=== PATIENT | male | born 1955 | race Caucasian/White ===

== ENCOUNTER 2022-11-25 07:28 | Observation (INO) | payer MEDICARE ==
[2022-11-25] MEDS ORDERED: Midazolam HCl 2 mg/2 ml Vial ONE (07:57)
[2022-11-25] MEDS ORDERED: fentaNYL 50 mcg/mL 1 mL Vial ONE (07:57)
[2022-11-25] MEDS ORDERED: Ropivacaine 0.5% HCl/PF (150 MG/30 ML VIAL) ONE (08:08)
[2022-11-25] MEDS ORDERED: Sodium Chloride 0.9% 100 ML ONE ×2 (08:15→09:47)
[2022-11-25] MEDS ORDERED: Tranexamic Acid 1,000 MG/10 ML VIAL ONE (08:15)
[2022-11-25] MEDS ORDERED: VANCOMYCIN 2 GRAM/500 ML BAG 2 GM in Premix Bag 1 BAG IVPB SCH (08:30)
[2022-11-25] MEDS ORDERED: fentaNYL PF 100 MCG/2 ML SYRINGE ONE (09:36)
[2022-11-25] MEDS ORDERED: HYDROmorphone 0.5 MG/0.5 ML SYRINGE ONE (09:37)
[2022-11-25] MEDS ORDERED: CEFAZOLIN 2 GM VIAL ONE (09:47)
[2022-11-25] MEDS ORDERED: fentaNYL 50 mcg/mL 1 mL Vial SLOW IVP PRN (09:50)
[2022-11-25] MEDS ORDERED: Lidocaine 1% PF 5 ML VIAL ONE (09:55)
[2022-11-25] MEDS ORDERED: PROPOFOL 200 MG/20 ML VIAL ONE (09:55)
[2022-11-25] MEDS ORDERED: Rocuronium Bromide 10 MG/ML (10ML VIAL) ONE (09:55)
[2022-11-25] MEDS ORDERED: Ondansetron PF 4 MG/2 ML Vial ONE (09:55)
[2022-11-25] MEDS ORDERED: Dexamethasone 20 MG/5 ML VIAL ONE (09:55)
[2022-11-25] MEDS ORDERED: Ondansetron PF 4 MG/2 ML Vial IVP PRN ×2 (10:00→12:28)
[2022-11-25] MEDS ORDERED: traMADol HCl 50 MG TAB PO PRN ×2 (10:00)
[2022-11-25] MEDS ORDERED: Ropivacaine 0.2% 550 ML 550 ML NERVE BLCK SCH (10:00)
[2022-11-25] MEDS ORDERED: Promethazine HCl 25 MG/ML VIAL IM PRN ×2 (10:00→12:51)
[2022-11-25] MEDS ORDERED: Zolpidem Tartrate 5 MG TAB PO PRN ×2 (10:00→12:28)
[2022-11-25] MEDS ORDERED: HYDROcodone/Acetaminophen 10/325 mg Tablet PO PRN ×2 (10:00)
[2022-11-25] MEDS ORDERED: Phenylephrine 10 MG/ML VIAL ONE (10:20)
[2022-11-25] MEDS ORDERED: SUGAMMADEX SODIUM 200 MG/2 ML VIAL ONE (11:46)
[2022-11-25] MEDS: Ketorolac Tromethamine 30 MG/ML VIAL IVP SCH ×2 (12:00→18:31)
[2022-11-25] MEDS ORDERED: Bisacodyl 10 MG SUPP PR PRN (12:28)
[2022-11-25] MEDS ORDERED: Methocarbamol 500 MG TAB PO PRN (12:28)
[2022-11-25] MEDS ORDERED: Acetaminophen 325 MG TAB PO PRN (12:28)
[2022-11-25] MEDS ORDERED: Ondansetron ODT 4 MG TAB PO PRN (12:28)
[2022-11-25] MEDS ORDERED: Methocarbamol 1 GM/10 ML VIAL SLOW IVP PRN (12:28)
[2022-11-25] MEDS ORDERED: Milk Of Magnesia 30 ML UDCUP PO PRN (12:28)
[2022-11-25] MEDS ORDERED: diphenhydrAMINE 50 MG CAP PO PRN (12:28)
[2022-11-25] MEDS ORDERED: HYDROmorphone 2 MG/ML VIAL SLOW IVP PRN (12:51)
[2022-11-25] MEDS ORDERED: Ondansetron HCl/PF 4 MG/2 ML Vial IVP PRN (12:51)
[2022-11-25] MEDS ORDERED: Meperidine HCl/PF 25 MG/ML VIAL SLOW IVP PRN (12:51)
[2022-11-25] MEDS: CEFAZOLIN 2 GM in Sodium Chloride 0.9% 100 ML IVPB SCH (18:31)
[2022-11-25 19:30] VITALS: BMI 42.0
[2022-11-25] MEDS: Famotidine 20 MG TAB PO SCH (21:34)
[2022-11-26] MEDS: Ketorolac Tromethamine 30 MG/ML VIAL IVP SCH ×2 (00:24→06:02)
[2022-11-26] MEDS: CEFAZOLIN 2 GM in Sodium Chloride 0.9% 100 ML IVPB SCH (02:34)
[2022-11-26] MEDS: Famotidine 20 MG TAB PO SCH (08:31)
[2022-11-26 09:10] VITALS: BP 137/77; TEMP 98
== END 2022-11-26 11:32 | disposition home or self-care (01) ==
LOC: SDC 07:28 → SURG A 17:55
PROVIDERS: ADMIT Orthopaedic Surgery; ATTEND Orthopaedic Surgery
PROC: 0RRK0JZ Replacement of Left Shoulder Joint with Synthetic Substitute, Open Approach (ICD-10-PCS; principal; 2022-11-25)
DX: M19.012 Primary osteoarthritis, left shoulder (principal); M67.814 Other specified disorders of tendon, left shoulder; E11.9 Type 2 diabetes mellitus without complications; G47.30 Sleep apnea, unspecified; F17.210 Nicotine dependence, cigarettes, uncomplicated; E66.01 Morbid (severe) obesity due to excess calories; Z68.41 Body mass index [BMI] 40.0-44.9, adult; Z85.46 Personal history of malignant neoplasm of prostate; Z85.72 Personal history of non-Hodgkin lymphomas; Z79.84 Long term (current) use of oral hypoglycemic drugs; Z96.653 Presence of artificial knee joint, bilateral
CPT/HCPCS: 23472; 82962; 96374; 96375; 96376; 97110; 97116 ×2; 97535; A4306; C1713 ×2; C1776 ×2; C1889; G0378 ×2; J3010; J3370; 36416; J1100; J1170; J1885; J2250; J2370; J2405; J2704; J2795; J3490